=== PATIENT | female | born 1945 | race Caucasian/White ===

== ENCOUNTER 2017-05-11 15:47 | Outpatient (CLI) | payer MEDICARE, OTHER ==
--- NOTE | 2017-05-12 17:18 | Mammography Report ---
DIGITAL SCREENING MAMMOGRAM: 05/11/2017 CLINICAL INDICATION: A 72-year-old for screening. TECHNIQUE: Routine CC and MLO projections were obtained of the breasts. COMPARISON: 01/2014, 10/2007. The breasts demonstrate scattered fibroglandular densities bilaterally. Coarse and punctate, typical ly benign calcifications are present. No suspicious masses, clustered microcalcifications, or region s of architectural distortion are identified. IMPRESSION: BENIGN FINDINGS. RECOMMENDATION: ROUTINE ANNUAL SCREENING UNLESS OTHERWISE CLINICALLY INDICATED. BIRADS CATEGORY: 2, BENIGN FINDINGS. STANDARD QUALIFYING STATEMENTS 1. This examination was reviewed with the aid of Computed-Aided Detection (CAD). 2. A negative or benign imaging report should not delay biopsy if clinically suspicious findings are present. Consider surgical consultation if warranted. More than 5% of cancers are not identified b y imaging. 3. Dense breasts may obscure an underlying neoplasm. JOB #: [id number] EXT JOB #:[id number]
== END 2017-05-11 15:48 | disposition home or self-care (01) ==
LOC: DI.S 15:47
PROVIDERS: ATTEND Nurse Practitioner Family
DX: Z12.31 Encounter for screening mammogram for malignant neoplasm of breast (principal)
CPT/HCPCS: 77067

== ENCOUNTER 2018-06-07 11:26 | Outpatient (CLI) | payer MEDICARE, OTHER ==
--- NOTE | 2018-06-07 23:43 | Ultrasound Report ---
Reason: CALCIUM OXALATE KIDNEY STONES Procedure Date: 06/07/2018 Accession Number: [id number] / [id number] Procedure: US - Retroperitoneal CPT Code: FULL RESULT: EXAM: RENAL ULTRASOUND EXAM DATE: 06/07/2018 12:06 PM. CLINICAL HISTORY: Calcium oxalate kidney stones. COMPARISON: 12/20/2014. TECHNIQUE: Real-time scanning was performed with static images obtained. FINDINGS: Right Kidney: 10.2 x 6.4 x 5.0 cm. Mild right hydronephrosis. Right ureter measures 1 cm. No mass or stones. Left Kidney: 10.2 x 5.4 x 4.9 cm. Mild left hydronephrosis. Left ureter measures 1.3 cm. No mass or stones. Bladder: Bilateral jets seen. The prevoid bladder volume was 451.9 cc. The postvoid bladder volume was 23.7 cc. Other: None. IMPRESSION: 1. No obstructing or nonobstructing renal stones. No renal mass. 2. Mild bilateral hydronephrosis. 3. Normal bladder. RADIA
== END 2018-06-07 11:27 | disposition home or self-care (01) ==
LOC: DI 11:26
PROVIDERS: ATTEND Urology
DX: N13.30 Unspecified hydronephrosis (principal)
CPT/HCPCS: 76770

== ENCOUNTER 2019-06-21 08:34 | Outpatient (CLI) | payer MEDICARE, OTHER ==
[2019-06-21 17:41] LABS: ALBUMIN 3.9 g/dL (3.2-5.5); ALBUMIN/GLOBULIN RATIO 1.5 (1.0-2.2); ALKALINE PHOSPHATASE 58 IU/L (42-121); ALT ALANINE AMINOTRANSFERASE 23 IU/L (10-60); AST ASPARTATE AMINOTRANSFERASE 23 IU/L (10-42); BILIRUBIN,TOTAL 0.7 mg/dL (0.2-1.0); BUN - BLOOD UREA NITROGEN 17 mg/dL (6-20); CALCIUM 9.2 mg/dL (8.5-10.3); CARBON DIOXIDE - CO2 29 mmol/L (21-32); CHLORIDE 104 mmol/L (101-111); CHOL/HDL RATIO 2.9 (<4.4); CHOLESTEROL 229 mg/dL; CK- CREATINE KINASE 115 IU/L (22-269); CREATININE 0.5 mg/dL (0.4-1.0); GFR - MDRD 121 (>89); GLUCOSE 100 mg/dL (70-100); HDL CHOLESTEROL 79 mg/dL; LDL CHOLESTEROL,CALCULATED 139 mg/dL; LDL/HDL RATIO 1.8 (<4.4); SODIUM 141 mmol/L (135-145); TOTAL PROTEIN 6.5 g/dL (6.7-8.2); VLDL CHOLESTEROL 11 mg/dL
[2019-06-21 17:44] LABS: CRP - C-REACTIVE PROTEIN < 1.0 mg/dL (0-1.0)
[2019-06-21 19:09] LABS: RHEUMATOID FACTOR NEGATIVE (Negative)
== END 2019-06-21 08:35 | disposition home or self-care (01) ==
LOC: LAB.S 08:34
PROVIDERS: ATTEND Internal Medicine Medical Oncology
DX: E78.5 Hyperlipidemia, unspecified (principal); M25.50 Pain in unspecified joint; R53.83 Other fatigue; R03.0 Elevated blood-pressure reading, without diagnosis of hypertension; M79.10 Myalgia, unspecified site
CPT/HCPCS: 36415; 80053; 80061; 82550; 83721; 84443; 85651; 86038; 86140; 86430

== ENCOUNTER 2020-12-17 10:08 | Outpatient (CLI) | payer MEDICARE, OTHER ==
--- NOTE | 2020-12-18 08:30 | Ultrasound Report ---
LIMITED ULTRASOUND OF LEFT BREAST: 12/17/2020 CLINICAL: Focal left breast pain, resolved at time of exam. Comparison is made to exams dated: 12/17/2020 ultrasound, 12/17/2020 mammogram, 05/11/2017 mammogram, and 02/08/2014 mammogram - [facility]. Real-time ultrasound of the left breast 1 o'clock region was performed. Watkins scale images of the re al-time examination were reviewed. No significant abnormalities were seen sonographically in the left breast. IMPRESSION: NEGATIVE There is no sonographic evidence of malignancy. There is no abnormality seen in the left breast to correspond with the area of clinical concern and p ain/burning indicated by square marker in the posterior depth in the upper outer quadrant, however, r ecommend clinical follow up for persistent or worsening symptoms, or development of any clinically skinner spicious findings. A 1 year screening mammogram is recommended. Findings and recommendations were conveyed to the patient during today's evaluation. This exam was interpreted at Station ID: [id number]. Electronically Signed By: Star Thomson M.D. aty/:12/17/2020 11:33:52 Ultrasound BI-RADS: 1 Negative BI-RADS CATEGORY: (1) - 1 RECOMMENDATION: (ANNUAL) - Recommend routine annual screening mammography. 20211218 1 year screening LATERALITY: (B)
--- NOTE | 2020-12-18 08:30 | Ultrasound Report ---
LIMITED ULTRASOUND OF RIGHT BREAST: 12/17/2020 CLINICAL: Patient returns for additional imaging over a suspected mass in the right breast. Comparison is made to exams dated: 12/17/2020 mammogram, 05/11/2017 mammogram, and 02/08/2014 mammogram - [facility]. Color flow and real-time ultrasound of the right breast retroareolar were performed. Watkins scale imag es of the real-time examination were reviewed. There is mild duct ectasia in the right breast central to the nipple in the retroareolar region. Thi s duct ectasia displays no posterior acoustic shadowing or enhancement. This correlates with mammogr aphy findings. Color flow imaging demonstrates that there is no vascularity present. IMPRESSION: BENIGN There is no sonographic evidence of malignancy. The duct ectasia in the right breast is benign. A 1 year screening mammogram is recommended. Findings and recommendations were conveyed to the patient during today's evaluation. This exam was interpreted at Station ID: [id number]. Electronically Signed By: Star Thomson M.D. aty/:12/17/2020 11:35:21 Ultrasound BI-RADS: 2 Benign BI-RADS CATEGORY: (2) - 2 RECOMMENDATION: (ANNUAL) - Recommend routine annual screening mammography. 20211218 1 year screening LATERALITY: (B)
--- NOTE | 2020-12-18 08:30 | Mammography Report ---
BILATERAL DIGITAL DIAGNOSTIC MAMMOGRAM 3D/2D: 12/17/2020 CLINICAL: Occasional left breast pain. Comparison is made to exams dated: 05/11/2017 mammogram and 02/08/2014 mammogram - [facility]. There are scattered fibroglandular elements in both breasts. There is a stable to possibly more prominent 1 cm oval equal density focal asymmetry in the right maritza ast central to the nipple in the retroareolar region. No other significant masses, calcifications, or other findings are seen in either breast. IMPRESSION: INCOMPLETE: NEEDS ADDITIONAL IMAGING EVALUATION The stable to possibly more prominent 1 cm oval equal density focal asymmetry in the right breast res embles a cyst or ductal ectasia and is indeterminate. An ultrasound is recommended for further evalu ation and is scheduled to immediately follow this examination. There is no abnormality seen in the left breast to correspond with the area of clinical concern and p ain/burning indicated by square marker in the posterior depth in the upper outer quadrant. An ultras ound is recommended for further evaluation and is scheduled to immediately follow this examination. This exam was interpreted at Station ID: [id number]. NOTE: For mammograms, a report in lay terms will be sent to the patient. Approximately 15% of breast malignancies will not be visualized mammographically. In the management of a palpable breast mass, a negative mammogram must not discourage biopsy of a clinically suspicious lesion. Electronically Signed By: Star Thomson M.D. aty/:12/17/2020 11:32:14 ACR BI-RADS Category 0: Incomplete 3340F PARENCHYMAL PATTERN: (A) - The breast(s) demonstrate(s) scattered fibroglandular densities. BI-RADS CATEGORY: (0) - 0 Ultrasound [id number] Immediate follow-up LATERALITY: (B)
== END 2020-12-17 10:09 | disposition home or self-care (01) ==
LOC: DI 10:08
PROVIDERS: ATTEND Nurse Practitioner Family
DX: N64.4 Mastodynia (principal); N60.41 Mammary duct ectasia of right breast

== ENCOUNTER 2023-11-02 08:19 | Outpatient (CLI) | payer MEDICARE, OTHER ==
[2023-11-02 15:32] LABS: BASOPHILS # (AUTO) 0.1 10^3/uL (0.0-0.1); EOSINOPHILS # (AUTO) 0.2 10^3/uL (0.0-0.7); EOSINOPHILS % (AUTO) 2.1 %; HCT - HEMATOCRIT 41.5 % (37.0-47.0); HGB - HEMOGLOBIN 13.1 g/dL (12.0-16.0); LYMPHOCYTES # (AUTO) 1.6 10^3/uL (1.5-3.5); LYMPHOCYTES % (AUTO) 22.6 %; MEAN CORPUSCULAR HGB CONC 31.6 g/dL (32.0-36.0); MEAN CORPUSCULAR VOLUME 95.2 fL (81.0-99.0); MEAN PLATELET VOLUME 10.7 fL (7.9-10.8); MONOCYTES # (AUTO) 0.5 10^3/uL (0.0-1.0); NEUTROPHILS # (AUTO) 4.7 10^3/uL (1.5-6.6); NEUTROPHILS % (AUTO) 67.2 %; PLT - PLATELET COUNT 180 10^3/uL (130-450); RED BLOOD COUNT 4.36 10^6/uL (4.20-5.40); RED CELL DISTRIBUTION WIDTH 13.3 % (12.0-15.0)
[2023-11-02 15:53] LABS: ALBUMIN 4.2 g/dL (3.2-5.5); ALBUMIN/GLOBULIN RATIO 1.8 (1.0-2.2); BILIRUBIN,TOTAL 0.6 mg/dL (0.2-1.0); CALCIUM 9.4 mg/dL (8.5-10.3); CREATININE 0.6 mg/dL (0.6-1.3); TOTAL PROTEIN 6.5 g/dL (6.4-8.9)
[2023-11-02 16:37] LABS: FERRITIN 90.6 ng/mL (11.0-306.8)
[2023-11-02 17:16] LABS: THYROID STIMULATING HORMONE 1.63 uIU/mL (0.34-5.60)
[2023-11-03 07:10] LABS: VITAMIN D 25-HYDROXY 43.1 ng/mL (30.0-100.0)
[2023-11-03 22:07] LABS: THYROGLOBULIN ANTIBODY <1.0 IU/mL (0.0-0.9); THYROID PEROXIDASE (TPO) AB <9 IU/mL (0-34)
== END 2023-11-02 08:20 | disposition home or self-care (01) ==
LOC: LAB.S 08:19
PROVIDERS: ATTEND Family Medicine
DX: K58.0 Irritable bowel syndrome with diarrhea (principal); R14.0 Abdominal distension (gaseous); A04.9 Bacterial intestinal infection, unspecified; R63.5 Abnormal weight gain; D89.89 Other specified disorders involving the immune mechanism, not elsewhere classified; K90.89 Other intestinal malabsorption; E61.7 Deficiency of multiple nutrient elements
CPT/HCPCS: 36415; 80053; 82306; 82607; 82728; 84439; 84443; 84481; 85025; 86376; 86800